=== PATIENT | male | born 1960 | race African-American/Black ===

== ENCOUNTER 2018-02-20 16:09 | Emergency (ER) | payer OTHER ==
[~2018-02-20] VITALS: Ht 190.5 cm; Wt 130.4 kg
[2018-02-20] MEDS ORDERED: HYDR25TA PO (16:15)
[2018-02-20] MEDS ORDERED: ASPI81 PO (16:15)
[2018-02-20] MEDS ORDERED: LISI-661 PO (16:15)
[2018-02-20] MEDS ORDERED: METF500T6 PO (16:15)
[2018-02-20 16:22] LABS: GLUCOSE,POINT OF CARE 115 MG/DL (70-110)
[2018-02-20] MEDS ORDERED: ACETAMINOPHEN 500 MG TABLET PO ONE (16:45)
[2018-02-20] MEDS ORDERED: POVIDONE-IODINE 10% 15 ML SOLUTION UD TP ONE (16:45)
[2018-02-20 17:46] VITALS: BP 144/85
== END 2018-02-20 17:59 | disposition home or self-care (01) ==
LOC: EMS 16:10
DX: S90.121A Contusion of right lesser toe(s) without damage to nail, initial encounter (principal); E11.9 Type 2 diabetes mellitus without complications; I11.9 Hypertensive heart disease without heart failure; W22.8XXA Striking against or struck by other objects, initial encounter; Y93.01 Activity, walking, marching and hiking; Y92.89 Other specified places as the place of occurrence of the external cause; Y99.8 Other external cause status
CPT/HCPCS: 99284

== ENCOUNTER 2021-06-21 14:24 | Emergency (ER) | payer OTHER ==
[~2021-06-21] VITALS: Ht 193 cm; Wt 127.7 kg
[~2021-06-21 14:24] MED LIST: ASPI-1450 PO; HYDR25TA2 PO; LISI-893 PO; METF-960 PO
[2021-06-21] MEDS ORDERED: AMLO10TA55 PO (14:30)
[2021-06-21] MEDS ORDERED: LISI-894 PO (14:31)
[2021-06-21] MEDS ORDERED: ATOR20TA86 PO (14:32)
[2021-06-21 15:59] LABS: BASOPHILS % (AUTO) 0.5 % (0.0-2.0); EOSINOPHILS % (AUTO) 2.4 % (1.0-6.0); HEMATOCRIT 43.8 % (41-53); HEMOGLOBIN 14.5 g/dL (13.5-17.5); LYMPHOCYTES # (AUTO) 2.7 K/uL (1.0-4.8); LYMPHOCYTES % (AUTO) 41.1 % (22.0-44.0); MEAN CORPUSCULAR HEMOGLOBIN 29.4 pg (26.0-34.0); MEAN CORPUSCULAR HGB CONC 33.2 G/dL (31.0-37.0); MEAN CORPUSCULAR VOLUME 89 fL (80-100); MONOCYTES # (AUTO) 0.9 K/uL (0.1-1.0); MONOCYTES % (AUTO) 13.3 % (2.0-9.0); NEUTROPHILS # (AUTO) 2.8 K/uL (1.8-7.7); NEUTROPHILS % (AUTO) 42.7 % (40.0-70.0); PLATELET COUNT (AUTO) 217 K/uL (150-450); RED BLOOD CELL COUNT(AUTO) 4.95 MIL/uL (4.50-5.90); RED CELL DISTRIBUTION WIDTH 13.6 % (11.5-14.5)
[2021-06-21 16:12] LABS: ANION GAP 7 mmol/L (8-16); CALCIUM, TOTAL 9.5 mg/dL (8.8-10.5); CARBON DIOXIDE 33 mmol/L (22-29); CHLORIDE 103 mmol/L (98-107); CREATININE 1.11 mg/dL (0.60-1.30); GLOMERULAR FILTR. RATE CALC > 60 mL/min (>60); GLUCOSE,RANDOM 108 mg/dL (70-110); POTASSIUM 4.2 mmol/L (3.5-5.1); SODIUM SERUM 143 mmol/L (136-145); UREA NITROGEN, BLOOD 15 mg/dL (7-18)
[2021-06-21 16:18] LABS: ALANINE AMINOTRANSFERASE 26 U/L (12-78); ALBUMIN 4.4 g/dL (3.4-5.0); ALKALINE PHOSPHATASE 54 U/L (46-116); ASPARTATE AMINOTRANSFERASE 19 U/L (15-37); BILIRUBIN,TOTAL 0.3 mg/dL (0.1-1.0); TOTAL PROTEIN, SERUM 8.7 g/dL (6.4-8.2)
[2021-06-21] MEDS ORDERED: SODIUM CHLORIDE 0.9% 100 ML ONE (16:18)
[2021-06-21] MEDS ORDERED: IOHEXOL 350 MG/ML 100 ML VIAL ONE (16:18)
[2021-06-21] MEDS ORDERED: MethylPREDNISolone SOD SUCC 125 MG/2 ML VIAL IVP ONE (17:00)
[2021-06-21] MEDS ORDERED: DiphenhydrAMINE HCL 25 MG CAPSULE PO ONE (17:00)
[2021-06-21] MEDS ORDERED: CLINDAMYCIN 300 MG/D5% WATER 50 ML IV ONE (18:45)
[2021-06-21 19:46] LABS: COVID AG,FIA SOURCE NASOPHARYNGEAL
[2021-06-21 22:28] VITALS: BP 150/96
[2021-06-21 22:43] VITALS: BP 124/77
[2021-06-21 22:58] VITALS: BP 129/93
[2021-06-21 23:13] VITALS: BP 129/84
[2021-06-21 23:28] VITALS: BP 139/84
[2021-06-22] VITALS (16 sets, daily range): BP systolic 127–162; BP diastolic 84–102
[2021-06-22] MEDS ORDERED: DiphenhydrAMINE HCL 50 MG/ML VIAL IVP STA (05:18)
[2021-06-22] MEDS ORDERED: MethylPREDNISolone SOD SUCC 125 MG/2 ML VIAL IVP ONE (05:30)
[2021-06-22 12:27] LABS: GLUCOMETER DEV NAME(LOC) ERT.5; GLUCOSE,POINT OF CARE 202 MG/DL (70-110)
== END 2021-06-22 12:47 | disposition short-term general hospital (02) ==
LOC: EMS 14:27
DX: T78.3XXA Angioneurotic edema, initial encounter (principal); J39.0 Retropharyngeal and parapharyngeal abscess; E11.9 Type 2 diabetes mellitus without complications; I11.9 Hypertensive heart disease without heart failure; Z20.822 Contact with and (suspected) exposure to COVID-19; Z87.891 Personal history of nicotine dependence; Z79.84 Long term (current) use of oral hypoglycemic drugs; Z79.899 Other long term (current) drug therapy
CPT/HCPCS: 36415; 36430; 70491; 80053; 82962; 85025; 86900; 86901; 86927; 87426; 87430; 96365; 96375 ×2; 99291; J1200; J2930 ×2; J3490; J7050; P9017; Q9967; U0003